=== PATIENT | female | born 1965 | race Asian ===

== ENCOUNTER 2019-12-13 15:08 | Emergency (ER) | payer OTHER ==
[~2019-12-13] VITALS: Ht 154.9 cm; Wt 70.5 kg
[2019-12-13] MEDS ORDERED: LISI2.5T91 PO (15:58)
[2019-12-13] MEDS ORDERED: ATOR10TA69 PO (15:58)
[2019-12-13] MEDS ORDERED: MECLIZINE HCL 25 MG TABLET PO ONE (16:15)
[2019-12-13 16:46] LABS: BASOPHILS % (AUTO) 0.1 % (0.0-2.0); EOSINOPHILS % (AUTO) 0.5 % (1.0-6.0); HEMATOCRIT 46.3 % (36-46); HEMOGLOBIN 15.3 g/dL (12.0-16.0); MEAN CORPUSCULAR HEMOGLOBIN 33.1 pg (26.0-34.0); MEAN CORPUSCULAR HGB CONC 33.1 G/dL (31.0-37.0); MEAN CORPUSCULAR VOLUME 100 fL (80-100); MONOCYTES # (AUTO) 0.3 K/uL (0.1-1.0); NEUTROPHILS # (AUTO) 7.7 K/uL (1.8-7.7); PLATELET COUNT (AUTO) 269 K/uL (150-450); RED BLOOD CELL COUNT(AUTO) 4.64 MIL/uL (4.00-5.20); RED CELL DISTRIBUTION WIDTH 12.7 % (11.5-14.5)
[2019-12-13 16:49] LABS: NEUTROPHILS % (AUTO) 85.4 % (40.0-70.0)
[2019-12-13 16:53] LABS: ANION GAP 10 mmol/L (8-16); CARBON DIOXIDE 28 mmol/L (22-29); CHLORIDE 101 mmol/L (98-107); CREATININE 0.82 mg/dL (0.60-1.30); GLOMERULAR FILTR. RATE CALC > 60 mL/min (>60); GLUCOSE,RANDOM 119 mg/dL (70-110); POTASSIUM 4.3 mmol/L (3.5-5.1); SODIUM SERUM 139 mmol/L (136-145); UREA NITROGEN, BLOOD 17 mg/dL (7-18)
[2019-12-13] MEDS ORDERED: IOVERSOL 350 MG/ML 100 ML VIAL ONE (17:12)
[2019-12-13] MEDS ORDERED: SODIUM CHLORIDE 0.9% 100 ML ONE (17:12)
[2019-12-13 17:33] LABS: PLATELET MORPHOLOGY COMMENT NORMAL
[2019-12-13 18:41] VITALS: BP 152/94
== END 2019-12-13 19:12 | disposition home or self-care (01) ==
LOC: EMS 15:08
DX: R51 Headache (principal); R42 Dizziness and giddiness; R11.2 Nausea with vomiting, unspecified; I10 Essential (primary) hypertension; Z79.899 Other long term (current) drug therapy
CPT/HCPCS: 36415; 70496; 80048; 85025; 99285; J7050; Q9967